=== PATIENT | male | born 1995 | race Two or more races ===

== ENCOUNTER 2020-06-08 15:53 | Emergency (ER) | payer SELFPAY ==
[2020-06-08] MEDS ORDERED: LODINE CAP 300300 MG PO (18:03)
== END 2020-06-08 18:07 | disposition home or self-care (01) ==
LOC: ER1 15:53
DX: S93.402A Sprain of unspecified ligament of left ankle, initial encounter (principal); S93.602A Unspecified sprain of left foot, initial encounter; X50.1XXA Overexertion from prolonged static or awkward postures, initial encounter; Y92.009 Unspecified place in unspecified non-institutional (private) residence as the place of occurrence of the external cause
CPT/HCPCS: 73610; 73630; 99283